=== PATIENT | male | born 1965 | race African-American/Black ===

== ENCOUNTER 2020-10-16 16:37 | Emergency (ER) | payer MEDICAID ==
[~2020-10-16] VITALS: Ht 177.8 cm; Wt 72.6 kg
--- NOTE | 2020-10-16 17:30 | NUR ---
PT AMBULATORY TO ED. ROOMED. C/O URINARY RETENTION SINCE LAST NIGHT. PT WAS AT [facility]. DENIES HX OF PROSTATE ENLARGEMENT. AWAITING MD LARA.
--- NOTE | 2020-10-16 17:32 | NUR ---
DR COLON AT BEDSIDE FOR EVAL.
[2020-10-16] MEDS ORDERED: LIDOCAINE 2% JEL UROJET 10 ML MM ONE (17:46)
--- NOTE | 2020-10-16 18:04 | NUR ---
PLASTER HELPER AT BEDSIDE FOR BLOOD DRAW.
[2020-10-16 18:25] LABS: BILIRUBIN,URINE Negative (NEGATIVE); BLOOD, URINE Large Ery/uL (NEGATIVE); COLOR,URINE RED (YELLOW); LEUKOCYTE ESTERASE ,URINE Negative (NEGATIVE); NITRITE, URINE Negative (NEGATIVE); PROTEIN,URINE 30 mg/dl (NEGATIVE); UGLUCOSE Negative (NEGATIVE); UROBILINOGEN,URINE 0.2 EU/dL (0.2)
[2020-10-16 18:27] LABS: CALCIUM, SERUM 9.4 mg/dL (8.5-10.1); CREATININE 1.8 mg/dL (0.6-1.3); POTASSIUM 4.2 mmol/L (3.5-5.1)
[2020-10-16 18:41] LABS: RBC,URINE TOO NUMEROUS TO COUN /HPF (0-2)
[2020-10-16 18:42] LABS: BACTERIA,URINE Rare /HPF (None Seen); SQUAMOUS EPITHELIAL CELL,UR 0-2 /HPF (None Seen); WBC,URINE 0-2 /HPF (0-3)
--- NOTE | 2020-10-16 19:14 | NUR ---
PT D/C HOME W/ LEG BAG. STATES FEELING WAY BETTER. ACI, UROLOGY REFFERAL AND PRESCRIPTION GIVEN. STABLE VITALS.
[2020-10-16 19:15] VITALS: BP 145/84
== END 2020-10-16 19:16 | disposition home or self-care (01) ==
LOC: ER 16:52
DX: R33.9 Retention of urine, unspecified (principal)
CPT/HCPCS: 36415; 51702; 80048; 81001; 99284; J3490

== ENCOUNTER 2020-12-30 02:18 | Emergency (ER) | payer MEDICAID ==
[~2020-12-30] VITALS: Ht 177.8 cm; Wt 79.8 kg
[2020-12-30 02:18] VITALS: BP 132/79
--- NOTE | 2020-12-30 02:34 | NUR ---
LINDQUIST CATHETER FLUSHED WITH NORMAL SALINE. CATHETER NOW FLOWING FREELY.
--- NOTE | 2020-12-30 02:34 | NUR ---
DR COLON AT BED SIDE
== END 2020-12-30 02:46 | disposition home or self-care (01) ==
LOC: ER 02:20
DX: T83.091A Other mechanical complication of indwelling urethral catheter, initial encounter (principal); R33.9 Retention of urine, unspecified

== ENCOUNTER 2021-06-01 15:25 | Emergency (ER) | payer MEDICAID ==
[~2021-06-01] VITALS: Ht 177.8 cm; Wt 70.3 kg
--- NOTE | 2021-06-01 15:27 | NUR ---
TO ER BED 13, C/O URINARY RETENTION SINCE YESTERDAY, ATTACHED TO MONITOR, CHANGED TO GOWN, AWAITING MD LARA
--- NOTE | 2021-06-01 16:09 | NUR ---
URINE COLLECTED AND SENT TO LAB
[2021-06-01 16:34] LABS: COLOR,URINE RED (YELLOW)
[2021-06-01 16:44] LABS: BACTERIA,URINE 3+ /HPF (None Seen); RBC,URINE TOO NUMEROUS TO COUN /HPF (0-2); SQUAMOUS EPITHELIAL CELL,UR 0-2 /HPF (None Seen); WBC,URINE 21-50 /HPF (0-3)
--- NOTE | 2021-06-01 17:30 | NUR ---
BLADDER SCAN SHOWED 15ML OF URINE, MD AWARE URINE OUTPUT AT 1730 IS 800ML, MD AWARE
[2021-06-01] MEDS ORDERED: SULF1TAB48 PO (17:31)
[2021-06-01 17:40] VITALS: BP 130/92
[2021-06-04] MEDS ORDERED: NITR100C PO (13:00)
== END 2021-06-01 18:42 | disposition home or self-care (01) ==
LOC: ER 15:29
DX: R33.9 Retention of urine, unspecified (principal); N40.0 Benign prostatic hyperplasia without lower urinary tract symptoms
CPT/HCPCS: 81001; 87086-TC; 87186-TC

== ENCOUNTER 2021-06-05 15:10 | Emergency (ER) | payer MEDICAID ==
[~2021-06-05] VITALS: Ht 177.8 cm; Wt 705.3 kg
[~2021-06-05 15:10] MED LIST: NITR100C PO; SULF1TAB48 PO
[2021-06-05 15:38] VITALS: BP 121/79
--- NOTE | 2021-06-05 15:45 | NUR ---
LINDQUIST CATH REPLACED.
--- NOTE | 2021-06-05 15:50 | NUR ---
URINE SPECIMEN COLLECTED AND SENT TO LAB.
--- NOTE | 2021-06-05 17:34 | NUR ---
Patient discharged to home in stable condition. Written and verbal after care instructions given. Patient verbalizes understanding of instruction.
== END 2021-06-05 17:35 | disposition home or self-care (01) ==
LOC: ER 15:19
DX: T83.098A Other mechanical complication of other urinary catheter, initial encounter (principal); Z79.899 Other long term (current) drug therapy

== ENCOUNTER 2022-11-21 20:16 | Emergency (ER) | payer MEDICAID ==
[~2022-11-21] VITALS: Ht 177.8 cm; Wt 74.8 kg
--- NOTE | 2022-11-21 21:00 | NUR ---
BIBSELF FROM HOME C/O URINARY RETENTION X4 HOURS. HX BPH. AMBULATORY, PLACED IN BED.
[2022-11-21] MEDS ORDERED: LIDOCAINE 2% JEL UROJET 10 ML MM ONE ×2 (21:28→21:37)
[2022-11-21] MEDS ORDERED: HYDROCODONE/APAP 5/325MG TABLET ONE (22:05)
[2022-11-21] MEDS ORDERED: HYDROCODONE/APAP 5/325MG TABLET PO ONE (22:30)
--- NOTE | 2022-11-21 22:30 | NUR ---
ATTEMPTED F/C 20FR WITH DR. BOWDEN. NOT ABLE TO ADVANCE F/C WITH URINE RETURN
--- NOTE | 2022-11-21 22:45 | NUR ---
BLADDER SCAN 450ML; DR. KAL JOE AWARE
--- NOTE | 2022-11-21 23:19 | NUR ---
UROLOGIST AT BEDSIDE
--- NOTE | 2022-11-21 23:24 | NUR ---
DR. GONZALEZ UROLOGY INSERTED F/C 16FR COUDEE
--- NOTE | 2022-11-21 23:34 | NUR ---
Patient discharged to home in stable condition. Written and verbal after care instructions given. Patient verbalizes understanding of instruction.
[2022-11-21 23:50] VITALS: BP 154/98
== END 2022-11-21 23:50 | disposition home or self-care (01) ==
LOC: ER 20:20
DX: R33.9 Retention of urine, unspecified (principal); Z79.899 Other long term (current) drug therapy; N40.1 Benign prostatic hyperplasia with lower urinary tract symptoms
CPT/HCPCS: 99284; 51702; J3490 ×2

== ENCOUNTER 2022-12-30 15:30 | Emergency (ER) | payer MEDICAID ==
[~2022-12-30] VITALS: Ht 177.8 cm; Wt 74.8 kg
[2022-12-30] MEDS ORDERED: LIDOCAINE 2% JEL UROJET 10 ML MM ONE (17:27)
--- NOTE | 2022-12-30 17:50 | NUR ---
ATTEMPT TO INSERT F/C ORDERED WAS UNSUCCESFULL. NOTED WITH THICK BLOOD COMING OUT OF F/C BUT NO URINE WAS NOTED. BLADDER SCANNER WITH 237ML OF URNINE NOTED. RTEMAYNE PA NOTIFIED. DR. NGUYEN UROLOGIST NOTIFIED.
[2022-12-30] MEDS ORDERED: ACETAMINOPHEN ES 500 MG TABLET ONE (18:28)
[2022-12-30] MEDS ORDERED: ACETAMINOPHEN 325 MG TABLET PO ONE (18:30)
--- NOTE | 2022-12-30 20:02 | NUR ---
DR. GONZALEZ UROLOGIST AT PT'S BEDSIDE FOR CONSULT EVAL
--- NOTE | 2022-12-30 20:05 | NUR ---
dr dorado at bed side
--- NOTE | 2022-12-30 20:56 | NUR ---
EMPTIED 400ML OF URINE WITH HEMATURIA FROM THE LINDQUIST BAG AND REPLACED IT WITH LEG BAG. MEDICALLY STABLE FOR D/C. Patient discharged to home in stable condition. Written and verbal after care instructions given. Patient verbalizes understanding of instruction.
[2022-12-30 21:06] VITALS: BP 138/88
== END 2022-12-30 21:08 | disposition home or self-care (01) ==
LOC: ER 15:36
DX: R33.9 Retention of urine, unspecified (principal); N40.1 Benign prostatic hyperplasia with lower urinary tract symptoms; R03.0 Elevated blood-pressure reading, without diagnosis of hypertension; Z79.899 Other long term (current) drug therapy
CPT/HCPCS: 99284; 51702; J3490; A4217 ×2

== ENCOUNTER 2023-03-29 16:43 | Emergency (ER) | payer MEDICAID ==
[~2023-03-29] VITALS: Ht 177.8 cm; Wt 74.8 kg
[2023-03-29 18:45] LABS: BASOPHILS % (AUTO) 0.2 % (0.0-2.0); EOSINOPHILS % (AUTO) 0.3 % (0.0-6.0); HEMATOCRIT 54 % (39-51); HEMOGLOBIN 17.6 g/dL (13.5-17.5); LYMPHOCYTES # (AUTO) 1.2 K/uL (0.8-4.8); LYMPHOCYTES % (AUTO) 23.3 % (20.0-44.0); MEAN CORPUSCULAR HGB CONC 33 g/dl (31.0-36.0); MEAN CORPUSCULAR VOLUME 90 fL (80-96); MONOCYTES # (AUTO) 0.4 K/uL (0.1-1.30); MONOCYTES % (AUTO) 7.8 % (2.0-12.0); NEUTROPHILS # (AUTO) 3.7 K/uL (1.8-8.9); NEUTROPHILS % (AUTO) 68.4 % (43.0-81.0); PLATELET COUNT (AUTO) 171 K/uL (150-450); WHITE BLOOD COUNT (AUTO) 5.4 K/uL (4.3-11.0)
[2023-03-29 18:58] LABS: CALCIUM, SERUM 9.4 mg/dL (8.5-10.1); CARBON DIOXIDE 28 mmol/L (21-32); CHLORIDE 102 mmol/L (98-107); CREATININE 1.1 mg/dL (0.6-1.3); GLUCOSE 103 mg/dL (74-106); POTASSIUM 3.8 mmol/L (3.5-5.1); SODIUM SERUM 138 mmol/L (136-145); UREA NITROGEN, BLOOD 12 mg/dL (7-18)
--- NOTE | 2023-03-29 20:44 | NUR ---
PT COMES TO ER FOR HI BP. IS SCHEDUALED FOR A CYTOSCOPY BUT BP IS TOO HI. PT HAS INDWELLING LINDQUIST CATHETER WITH BAG URINE IS DRAINING WITHOUT COMPLICATIONS. SBP IS 190'S
[2023-03-29] MEDS ORDERED: AMLO-212 PO (21:29)
--- NOTE | 2023-03-29 21:57 | NUR ---
IV removed. Catheter intact and site benign. Pressure and 4x4 applied to site. No bleeding noted.Patient discharged to home in stable condition. Written and verbal after care instructions given. Patient verbalizes understanding of instruction.
[2023-03-29 21:58] VITALS: BP 196/111
== END 2023-03-29 21:58 | disposition home or self-care (01) ==
LOC: ER 16:45
DX: I10 Essential (primary) hypertension (principal)
CPT/HCPCS: 36415; 71045-TC; 80048-TC; 84484-TC; 85025-TC

== ENCOUNTER 2024-07-06 22:45 | Emergency (ER) | payer MEDICAID, OTHER ==
[~2024-07-06] VITALS: Ht 177.8 cm; Wt 74.8 kg
[~2024-07-06 22:45] MED LIST changes: +AMLO-212 PO
[2024-07-07] MEDS ORDERED: LIDOCAINE 2% JEL UROJET 10 ML MM ONE (00:09)
[2024-07-07] MEDS: LIDOCAINE 2% JEL UROJET 10 ML MM ONE (00:18)
[2024-07-07 00:44] LABS: APPEARANCE,URINE CLEAR (CLEAR); BILIRUBIN,URINE NEGATIVE (NEGATIVE); BLOOD, URINE 2+ Ery/uL (NEGATIVE); COLOR,URINE YELLOW (YELLOW); KETONES,URINE NEGATIVE (NEGATIVE); LEUKOCYTE ESTERASE ,URINE TRACE (NEGATIVE); NITRITE, URINE NEGATIVE (NEGATIVE); PROTEIN,URINE NEGATIVE (NEGATIVE); UGLUCOSE NEGATIVE (NEGATIVE); UROBILINOGEN,URINE 0.2 EU/dL (0.2)
[2024-07-07 01:20] LABS: ADD URINE CULTURE NO; BACTERIA,URINE None seen /HPF (None Seen); SQUAMOUS EPITHELIAL CELL,UR None Seen /HPF (None Seen); WBC,URINE NONE SEEN /HPF (0-3)
[2024-07-07 01:41] VITALS: BP 156/114; TEMP 97.7; O2SAT 98
== END 2024-07-07 01:41 | disposition home or self-care (01) ==
LOC: ER 22:48
DX: R33.9 Retention of urine, unspecified (principal); Z87.430 Personal history of prostatic dysplasia
CPT/HCPCS: 99284; 51702; 81001; J3490